=== PATIENT | male | born 1995 | race Caucasian/White ===

== ENCOUNTER 2016-06-28 17:39 | Emergency (ER) | payer OTHER ==
[2016-06-28 17:44] VITALS: BP 140/90; BMI 26.6
[2016-06-28] MEDS ORDERED: IBUPROFEN 400 MG TABLET (FP) PO ONE ×2 (17:51→18:00)
--- NOTE | 2016-06-28 17:52 | PDOC ---
History of Present Illness - General Chief Complaint: Sore Throat Stated Complaint: COLD SYMPTOMS Time Seen by Provider: 06/28/16 17:51 History Source: Patient Past History - Past Medical History Allergies/Adverse Reactions: Allergies Allergy/AdvReac Type Severity Reaction Status Date / Time No Known Allergies Allergy Verified 06/28/16 17:44 Home Medications: Ambulatory Orders No Home Medications 0 dose .ROUTE UTDICT 07/03/12 Clindamycin [Cleocin -] 300 mg PO Q6HPO #28 capsule 04/04/15 Azithromycin [Zithromax 250mg Tablets -] 250 mg PO ASDIR #6 tab 06/28/16 Benzonatate [Tessalon Pearls -] 100 mg PO TID #21 capsule 06/28/16 Ibuprofen [Motrin -] 800 mg PO Q6H #30 tablet 06/28/16 Other medical history: denies - Psycho/Social/Smoking Cessation Hx Suicidal Ideation: No Smoking Status: No Smoking History: Never smoked Number of Cigarettes Smoked Daily: 10 Information on smoking cessation initiated: No 'Breaking Loose' booklet given: 04/07/15 Hx Alcohol Use: No Drug/Substance Use Hx: No Substance Use Type: None Review of Systems - Review of Systems Constitutional: Yes: Fever *Physical Exam - Vital Signs Last Vital Signs Temp Pulse Resp BP Pulse Ox 100.2 F H 108 H 19 140/90 98 06/28/16 17:43 06/28/16 17:43 06/28/16 17:43 06/28/16 17:43 06/28/16 17:43 - Physical Exam General Appearance: Yes: Appropriately Dressed Medical Decision Making - Medical Decision Making 06/28/16 17:52 20-year-old male, history of pneumonia, presents with productive cough with headache and sore throat x several weeks. The past several days has had low- grade fever. Denies shortness of breath, wheezing, body aches, vomiting or diarrhea. Not currently taking anything for symptoms See exam URI w/ fever M/l viral Tachy w/ low grade fever in ED, exam otherwise unremarkable -antipyretic -cxr given hx -anticipate discharge w/ supportive tx 06/28/16 18:21 06/28/16 18:39 Chest x-ray negative. Vitals improved. Will dc with supportive treatment. Rx for zpack also given, given duration of treatment. Pt to f/u with PMD 06/28/16 18:42 *DC/Admit/Observation/Transfer Diagnosis at time of Disposition: Viral URI - Discharge Dispostion Disposition: HOME Condition at time of disposition: Improved - Prescriptions Prescriptions: Ibuprofen [Motrin -] 800 mg PO Q6H #30 tablet Benzonatate [Tessalon Pearls -] 100 mg PO TID #21 capsule Azithromycin [Zithromax 250mg Tablets -] 250 mg PO ASDIR #6 tab - Referrals Referrals: Ion Sheppard MD [Primary Care Provider] - - Patient Instructions Printed Discharge Instructions: DI for Viral Upper Respiratory Infection -- Adult Additional Instructions: Take medications as directed and follow-up with your PMD
[2016-06-28 18:44] VITALS: PULSE 110; TEMP 99.3
== END 2016-06-28 18:46 | disposition home or self-care (01) ==
LOC: JERFT 17:39
DX: J06.9 Acute upper respiratory infection, unspecified (principal); B97.89 Other viral agents as the cause of diseases classified elsewhere
CPT/HCPCS: 71020-TC; 99281-25

== ENCOUNTER 2018-05-27 20:56 | Emergency (ER) | payer OTHER ==
[2018-05-27] MEDS ORDERED: ALBUTEROL SO4 2.5/IPRATROPIUM 0.5 INH SOL 3 ML VIAL.NEB. NEB ONE ×2 (21:08→21:35)
--- NOTE | 2018-05-27 21:08 | PDOC ---
Rapid Medical Evaluation Time Seen by Provider: 05/27/18 21:04 Medical Evaluation: Allergies Allergy/AdvReac Type Severity Reaction Status Date / Time No Known Allergies Allergy Verified 01/11/17 14:47 05/27/18 21:04 The patient presents with a chief complaint of: cough, fever, and sob, gave motrin at 730pm I have performed a brief in-person evaluation of this patient Pertinent physical exam findings: wheezing to rt base, tachy, appears uncomfortable I have ordered the following: rapid strep, influenza, cxr The patient will proceed to the ED for further evaluation. Discharge Disposition - Diagnosis Cough - Referrals - Patient Instructions - Post Discharge Activity
[2018-05-27 21:09] VITALS: BMI 28.8
[2018-05-27] MEDS ORDERED: ACETAMINOPHEN 325 MG TABLET (FP) PO ONE (21:28)
--- NOTE | 2018-05-27 21:28 | PDOC ---
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 Patient reports that he is a smoker 6-7 cigarettes per day denies fever/ chills chest pain, NVD, abdominal pain. No past medical history [facility] Past History - Past Medical History Allergies/Adverse Reactions: Allergies Allergy/AdvReac Type Severity Reaction Status Date / Time No Known Allergies Allergy Verified 05/27/18 21:09 Home Medications: Ambulatory Orders No Home Medications 0 dose .ROUTE UTDICT 07/03/12 Albuterol Sulfate Inhaler - [Ventolin HFA Inhaler -] 1 - 2 inh PO Q4H PRN #1 inhaler 05/27/18 Azithromycin 250 mg PO DAILY #4 tablet 05/27/18 COPD: No - Immunization History Immunization Up to Date: Yes - Suicide/Smoking/Psychosocial Hx Smoking Status: No Smoking History: Current every day smoker Have you smoked in the past 12 months: Yes Number of Cigarettes Smoked Daily: 5 Information on smoking cessation initiated: No 'Breaking Loose' booklet given: 04/07/15 Hx Alcohol Use: No Drug/Substance Use Hx: No Substance Use Type: None Review of Systems - Review of Systems Able to Perform ROS?: Yes Is the patient limited Bulgarian proficient: No Constitutional: No: Fever HEENTM: Yes: Nose Congestion. No: Symptoms Reported, See HPI, Eye Pain, Blurred Vision, Tearing, Recent change in vision, Double Vision, Cataracts, Ear Pain, Ocular Prothesis, Ear Discharge, Nose Pain, Tinnitus, Nose Bleeding, Hearing Loss, Throat Pain, Throat Swelling, Mouth Pain, Dental Problems, Difficulty Swallowing, Mouth Swelling, Other Respiratory: Yes: Cough, Shortness of Breath, Wheezing. No: Symptoms reported, See HPI, Orthopnea, SOB with Exertion, SOB at Rest, Stridor, Productive cough, Hemoptysis, Other Cardiac (ROS): No: Symptoms Reported, See HPI, Chest Pain, Edema, Irregular Heart Rate, Lightheadedness, Palpitations, Syncope, Chest Tightness, Other ABD/GI: No: Symptoms Reported, See HPI, Abdominal Distended, Abd. Pain w/ defecation, Blood Streaked Bowels, Constipated, Diarrhea, Difficulty Swallowing , Nausea, Poor Appetite, Poor Fluid Intake, Rectal Bleeding, Vomiting, Indigestion, Abdominal cramping, Tarry Stools, Other : No: Symptoms Reported, See HPI, Burning, Dysuria, Discharge, Frequency, Flank Pain, Hematuria, Incontinence, Pain, Urgency, Testicular Mass, Testicular Swelling, Lesions, Testicular Pain, Other *Physical Exam - Vital Signs Last Vital Signs Temp Pulse Resp BP Pulse Ox 99.7 F H 126 H 18 132/84 100 05/27/18 21:07 05/27/18 21:07 05/27/18 21:07 05/27/18 21:07 05/27/18 21:07 - Physical Exam General Appearance: Yes: Appropriately Dressed HEENT: positive: Normal Voice, Symmetrical, TMs Normal, Pharyngeal Erythema Respiratory/Chest: positive: Wheezing (end expiratorty wheezing) Cardiovascular: positive: Tachycardia Gastrointestinal/Abdominal: positive: Normal Bowel Sounds, Soft. negative: Tender Musculoskeletal: positive: Normal Inspection Extremity: positive: Normal Capillary Refill, Normal Inspection, Normal Range of Motion Integumentary: positive: Normal Color, Dry, Warm Neurologic: positive: Fully Oriented, Alert, Normal Mood/Affect Progress Note - Progress Note Progress Note: A: bronchitis P: influenza/ strep negative chest xray negative azithromycin albuterol Medical Decision Making - Medical Decision Making 05/27/18 22:36 feeling better. v/s improved. no shortness of breath after neb *DC/Admit/Observation/Transfer Diagnosis at time of Disposition: Bronchitis - Discharge Dispostion Disposition: HOME - Prescriptions Prescriptions: Albuterol Sulfate Inhaler - [Ventolin HFA Inhaler -] 1 - 2 inh PO Q4H PRN #1 inhaler PRN Reason: Cough Azithromycin 250 mg PO DAILY #4 tablet - Referrals Referrals: Lonnie Hart MD [Primary Care Provider] - - Patient Instructions Printed Discharge Instructions: Acute Bronchitis Additional Instructions: Drink plenty of fluids Take albuterol inhaler every 4 hours as needed for cough Take azithromycin starting tomorrow Follow-up with your primary doctor in 1-2 days Return to the emergency room if symptoms worsen - Post Discharge Activity Forms/Work/School Notes: Back to Work
[2018-05-27] MEDS ORDERED: ACETAMINOPHEN 325 MG TABLET (FP) ONE (21:35)
[2018-05-27] MEDS ORDERED: AZITHROMYCIN 500 MG TABLET PO ONE (22:08)
[2018-05-27] MEDS ORDERED: DEXAMETHASONE 4 MG TABLET (FP) PO ONE (22:15)
[2018-05-27 22:23] VITALS: BP 118/68; PULSE 109; TEMP 98.2
[2018-05-27] MEDS ORDERED: AZITHROMYCIN 250 MG TABLET ONE (22:29)
== END 2018-05-27 22:59 | disposition home or self-care (01) ==
LOC: JER 20:56
PROC: 3E0F7GC Introduction of Other Therapeutic Substance into Respiratory Tract, Via Natural or Artificial Opening (ICD-10-PCS; principal; 2018-05-27)
DX: J40 Bronchitis, not specified as acute or chronic (principal); F17.210 Nicotine dependence, cigarettes, uncomplicated
CPT/HCPCS: 71046-TC-FY; 87070; 87804; 87880; 94640; 99281-25

== ENCOUNTER 2020-09-14 12:29 | Emergency (ER) | payer OTHER ==
[2020-09-14 12:37] VITALS: BP 141/90; PULSE 84; TEMP 98.1; BMI 37.8
[2020-09-14 13:39] LABS: BASO % 0.5 % (0-2.0); EOS % 1.6 % (0-4.5); HEMATOCRIT 47.8 % (35.4-49); HEMOGLOBIN 16.7 GM/dL (11.7-16.9); LYMPH % 20.4 % (8-40); MEAN CELL VOLUME 91.4 fl (80-96); MEAN PLT VOLUME 8.4 fl (7.5-11.1); MONO % 6.5 % (3.8-10.2); PLATELET COUNT 176 10^3/uL (134-434); RBC 5.23 M/mm3 (4.00-5.60); RDW 13.1 % (11.9-15.9); WHITE BLOOD COUNT 10.2 K/mm3 (4.0-10.0)
[2020-09-14 14:01] LABS: CALCIUM 9.6 mg/dL (8.5-10.1)
[2020-09-14 14:02] LABS: ALBUMIN 4.3 g/dl (3.4-5.0); BLOOD UREA NITROGEN 14.8 mg/dL (7-18)
[2020-09-14 14:07] LABS: BILIRUBIN,TOTAL 0.6 mg/dL (0.2-1); TOT PROT 7.9 g/dl (6.4-8.2)
== END 2020-09-14 18:02 | disposition home or self-care (01) ==
LOC: JERFT 12:29
DX: L05.01 Pilonidal cyst with abscess (principal)
CPT/HCPCS: 36415; 74177-TC; 80053; 85025; 87070; 87076; 87205; 99285-25; Q9967

== ENCOUNTER 2020-09-16 13:18 | Emergency (ER) | payer OTHER ==
[2020-09-16 13:25] VITALS: BP 118/73; PULSE 77; TEMP 97.8; BMI 37.8
== END 2020-09-16 14:55 | disposition home or self-care (01) ==
LOC: JERFT 13:18
DX: Z48.00 Encounter for change or removal of nonsurgical wound dressing (principal)
CPT/HCPCS: 99281-25

== ENCOUNTER 2021-03-08 15:46 | Emergency (ER) | payer OTHER ==
[2021-03-08 15:58] VITALS: BP 140/72; PULSE 87; TEMP 98.6; BMI 38.1
[2021-03-08] MEDS ORDERED: IBUPROFEN 400 MG TABLET (FP) PO ONE ×2 (16:51→17:08)
== END 2021-03-08 17:30 | disposition home or self-care (01) ==
LOC: JERFT 15:46
DX: S86.911A Strain of unspecified muscle(s) and tendon(s) at lower leg level, right leg, initial encounter (principal); S80.01XA Contusion of right knee, initial encounter; W01.0XXA Fall on same level from slipping, tripping and stumbling without subsequent striking against object, initial encounter
CPT/HCPCS: 73564-TC-RT-FY; 99283-25

== ENCOUNTER 2022-01-09 | Emergency (ER) | payer OTHER ==
[2022-01-09 00:11] VITALS: BP 137/88; PULSE 83; RESP 17; TEMP 98.1; BMI 36.9
== END 2022-01-09 01:25 | disposition home or self-care (01) ==
LOC: JER → JERFT
DX: S00.83XA Contusion of other part of head, initial encounter (principal); S00.81XA Abrasion of other part of head, initial encounter; S09.90XA Unspecified injury of head, initial encounter; W22.8XXA Striking against or struck by other objects, initial encounter
CPT/HCPCS: 99281-25

== ENCOUNTER 2023-03-14 17:58 | Emergency (ER) | payer OTHER ==
[2023-03-14 18:08] VITALS: BP 143/81; PULSE 96; RESP 19; TEMP 97.5; BMI 35.8
[2023-03-14] MEDS ORDERED: IBUPROFEN 400 MG TABLET (FP) PO ONE ×2 (18:28→19:06)
[2023-03-14] MEDS ORDERED: LIDOCAINE 5% TOPICAL PATCH TP ONE (18:28)
[2023-03-14] MEDS ORDERED: LIDOCAINE 4% PATCH TP ONE ×2 (19:05→19:08)
[2023-03-14] MEDS ORDERED: LIDOCAINE PATCH REMOVAL MC SCH (22:00)
[2023-03-14] MEDS ORDERED: LIDOCAINE PATCH REMOVAL MC ONE (22:00)
== END 2023-03-14 20:36 | disposition home or self-care (01) ==
LOC: JERFT 17:58
DX: M54.50 Low back pain, unspecified (principal); R10.31 Right lower quadrant pain; L02.214 Cutaneous abscess of groin
CPT/HCPCS: 99283-25

== ENCOUNTER 2023-03-14 23:49 | Emergency (ER) | payer OTHER ==
[2023-03-14 23:53] VITALS: BP 141/89; PULSE 76; RESP 18; TEMP 97.9; BMI 35.8
[2023-03-15] MEDS ORDERED: ACETAMINOPHEN 1000 MG/100 ML BAG IVPB ONE (01:13)
[2023-03-15] MEDS ORDERED: ACETAMINOPHEN INJECTION 100 ML IVPB ONE (01:34)
[2023-03-15 02:01] LABS: BASO % 0.5 % (0-2.0); EOS % 1.3 % (0-4.5); HEMATOCRIT 46.5 % (35.4-49); HEMOGLOBIN 16.1 GM/dL (11.7-16.9); LYMPH % 29.7 % (8-40); MCH 31.2 pg (25.7-33.7); MCHC 34.6 g/dl (32.0-35.9); MEAN CELL VOLUME 90.3 fl (80-96); MEAN PLT VOLUME 9.3 fl (7.5-11.1); MONO % 7.8 % (3.8-10.2); NEUT % 60.7 % (42.8-82.8); PLATELET COUNT 188 10^3/uL (134-434); RBC 5.15 M/mm3 (4.00-5.60); RDW 13.4 % (11.9-15.9); WHITE BLOOD COUNT 10.4 K/mm3 (4.0-10.0)
[2023-03-15 02:19] LABS: POTASSIUM 3.7 mmol/L (3.5-5.1)
[2023-03-15 02:21] LABS: CALCIUM 9.4 mg/dL (8.5-10.1)
[2023-03-15 02:22] LABS: ALBUMIN 4.1 g/dl (3.4-5.0); BLOOD UREA NITROGEN 17.8 mg/dL (7-18)
[2023-03-15 02:26] LABS: BILIRUBIN,TOTAL 0.6 mg/dL (0.2-1); TOT PROT 7.7 g/dl (6.4-8.2)
[2023-03-15] MEDS ORDERED: LIDOCAINE 5% TOPICAL PATCH TP ONE (05:04)
[2023-03-15] MEDS ORDERED: LIDOCAINE 4% PATCH TP ONE (05:21)
[2023-03-15] MEDS ORDERED: LIDOCAINE PATCH REMOVAL MC SCH (22:00)
== END 2023-03-15 06:36 | disposition home or self-care (01) ==
LOC: JER 23:49
PROC: 3E033NZ Introduction of Analgesics, Hypnotics, Sedatives into Peripheral Vein, Percutaneous Approach (ICD-10-PCS; principal; 2023-03-15)
DX: L02.214 Cutaneous abscess of groin (principal)
CPT/HCPCS: 74177-TC; 80053; 85025; 86850; 86900; 86901; 99284-25